=== PATIENT | female | born 1980 | race Caucasian/White ===

== ENCOUNTER → 2020-04-30 | Outpatient (CLI) | payer BC, OTHER ==
[~2020-04-30] MED LIST: VISTARIL25 MG PO
== END ==
LOC: RAD 11:33
DX: Z13.9 Encounter for screening, unspecified (principal)
CPT/HCPCS: 71046

== ENCOUNTER → 2020-05-05 | Outpatient (CLI) | payer BC, OTHER ==
[2020-05-05 07:49] LABS: HEMOGLOBIN 14.8 gm/dl (12.3-15.3); RED BLOOD COUNT 5.04 M/UL (4.00-5.10); WHITE BLOOD COUNT 3.9 K/UL (4.5-11.0)
[2020-05-05 08:29] LABS: BUN/CREATININE RATIO 27 (0-10)
[2020-05-06 08:14] LABS: THYROXINE (T4) 6.8 ug/dL (4.5-12.0); VITAMIN D, 25-HYDROXY 49.6 ng/mL (30.0-100.0)
== END ==
LOC: LAB 07:19
PROVIDERS: Nurse Practitioner
DX: Z00.00 Encounter for general adult medical examination without abnormal findings (principal); D64.9 Anemia, unspecified; R53.83 Other fatigue; E55.9 Vitamin D deficiency, unspecified; E78.5 Hyperlipidemia, unspecified
CPT/HCPCS: 36415; 80053; 80061; 84436; 84443; 84480; 85025

== ENCOUNTER → 2020-06-16 | Outpatient (CLI) | payer BC, OTHER ==
[2020-06-16 08:34] LABS: HEMOGLOBIN 14.4 gm/dl (12.3-15.3); RED BLOOD COUNT 4.89 M/UL (4.00-5.10); WHITE BLOOD COUNT 4.9 K/UL (4.5-11.0)
== END ==
LOC: LAB 08:20
PROVIDERS: Nurse Practitioner
DX: B34.9 Viral infection, unspecified (principal); D72.819 Decreased white blood cell count, unspecified
CPT/HCPCS: 36415; 85025